=== PATIENT | male | born 1945 | race Caucasian/White ===

== ENCOUNTER 2024-04-25 15:22 | Outpatient (CLI) | payer MEDICARE ==
[2024-04-25 16:10] LABS: Hematocrit 44.4 % (38.8-50.0); Hemoglobin 14.9 g/dL (13.5-17.5); Mean Corpuscular HGB CONC 33.6 g/dL (32.0-36.0); Mean Corpuscular Hemoglobin 30.7 pg (27.0-33.0); Mean Corpuscular Volume 91.5 fL (81.2-95.1); Mean Platelet Volume 9.3 fL (7.4-10.4); Platelet Count 194 10x3/uL (150-450); RBC Distribution Width 13.5 % (11.5-14.5); Red Blood Cell (RBC) Count 4.85 10x6/uL (4.32-5.72); White Blood Cell (WBC) Count 7.1 10x3/uL (3.5-10.5)
[2024-04-25 16:25] LABS: Anion Gap 11 mmol/L (10-20); BUN (Urea Nitrogen) 15 mg/dL (8.4-25.7); Calc. Creatinine Clearance 0 mL/min (70-130); Calcium 9.5 mg/dL (7.8-10.44); Carbon Dioxide 29 mmol/L (23-31); Chloride 106 mmol/L (98-107); Estimated GFR 90; Glucose 101 mg/dL (83-110); Potassium 3.7 mmol/L (3.5-5.1); Sodium 142 mmol/L (136-145)
== END 2024-04-25 15:23 | disposition home or self-care (01) ==
LOC: CSHLAB 15:22
PROVIDERS: ATTEND Surgery
DX: Z01.818 Encounter for other preprocedural examination (principal); K40.20 Bilateral inguinal hernia, without obstruction or gangrene, not specified as recurrent
CPT/HCPCS: 80048; 85027; 93005; 93010

== ENCOUNTER 2024-05-09 09:11 | Day surgery (SDC) | payer MEDICARE ==
[2024-04-25 15:44] VITALS: BMI 26.9
[2024-05-09] MEDS ORDERED: Midazolam HCl 2 mg/2 ml Vial ONE (09:48)
[2024-05-09] MEDS ORDERED: CEFAZOLIN 2 GM VIAL ONE (10:03)
[2024-05-09] MEDS ORDERED: Bupivacaine HCl 0.5%/Epinephrine 1:200,000/PF 30 ml Vial ONE (10:03)
[2024-05-09] MEDS ORDERED: fentaNYL 50 mcg/mL 1 mL Vial ONE ×3 (10:15→12:16)
[2024-05-09] MEDS ORDERED: Lidocaine 1% PF 5 ML VIAL ONE (10:15)
[2024-05-09] MEDS ORDERED: Rocuronium Bromide 10 MG/ML (10ML VIAL) ONE (10:15)
[2024-05-09] MEDS ORDERED: SUGAMMADEX SODIUM 200 MG/2 ML VIAL ONE (10:58)
[2024-05-09] MEDS ORDERED: Ondansetron PF 4 MG/2 ML Vial ONE (10:58)
[2024-05-09] MEDS ORDERED: HYDROcodone/Acetaminophen 5/325 mg Tablet ONE (12:50)
== END 2024-05-09 13:30 | disposition home or self-care (01) ==
LOC: CSHSDC 09:11
PROVIDERS: ATTEND Surgery
PROC: 0YUA4JZ Supplement Bilateral Inguinal Region with Synthetic Substitute, Percutaneous Endoscopic Approach (ICD-10-PCS; principal; 2024-05-09)
DX: K40.20 Bilateral inguinal hernia, without obstruction or gangrene, not specified as recurrent (principal); I10 Essential (primary) hypertension; E03.9 Hypothyroidism, unspecified; E55.9 Vitamin D deficiency, unspecified; E78.5 Hyperlipidemia, unspecified; I48.0 Paroxysmal atrial fibrillation; I73.9 Peripheral vascular disease, unspecified; M19.90 Unspecified osteoarthritis, unspecified site; Z79.890 Hormone replacement therapy; Z79.899 Other long term (current) drug therapy; Z79.01 Long term (current) use of anticoagulants; Z87.891 Personal history of nicotine dependence; Z98.890 Other specified postprocedural states
CPT/HCPCS: 49650; C1781 ×2; J2250; J2405; J3010; S2900

== ENCOUNTER 2024-07-17 08:46 | Day surgery (SDC) | payer MEDICARE ==
[2024-07-15 13:52] VITALS: BMI 25.9
[2024-07-17 09:49] LABS: Hematocrit 43.7 % (38.8-50.0); Hemoglobin 14.3 g/dL (13.5-17.5); Platelet Count 197 10x3/uL (150-450)
[2024-07-17 10:02] LABS: Anion Gap 11 mmol/L (10-20); BUN (Urea Nitrogen) 15 mg/dL (8.4-25.7); Calc. Creatinine Clearance 85 mL/min (70-130); Calcium 8.9 mg/dL (7.8-10.44); Carbon Dioxide 25 mmol/L (23-31); Chloride 108 mmol/L (98-107); Estimated GFR 91; Glucose 99 mg/dL (83-110); Potassium 3.6 mmol/L (3.5-5.1); Sodium 140 mmol/L (136-145)
[2024-07-17] MEDS ORDERED: PROPOFOL 20 ML ONE (11:03)
[2024-07-17] MEDS ORDERED: Fentanyl 250 MCG/5 ML VIAL ONE (11:03)
[2024-07-17] MEDS ORDERED: Lidocaine 1% PF 5 ML VIAL ONE (11:04)
[2024-07-17] MEDS ORDERED: Dexamethasone 4 mg/ml Vial ONE (11:05)
[2024-07-17] MEDS ORDERED: Ondansetron PF 4 MG/2 ML Vial ONE (11:05)
[2024-07-17] MEDS ORDERED: Rocuronium Bromide 10 MG/ML (10ML VIAL) ONE (11:05)
[2024-07-17] MEDS ORDERED: Ciprofloxacin 0.3% Ophth Soln 2.5 ml Bottle ONE ×2 (11:06→12:37)
[2024-07-17] MEDS ORDERED: Mupirocin 2% Ointment 22 GM Tube ONE (11:06)
[2024-07-17] MEDS ORDERED: Lidocaine 1% w/Epinephrine 1:200K 30 ML VIAL ONE (11:06)
[2024-07-17] MEDS ORDERED: Lidocaine 4% PF 5 ML AMP ONE (11:22)
[2024-07-17] MEDS ORDERED: ePHEDrine Sulfate 50 MG/10 ML VIAL ONE (11:38)
[2024-07-17] MEDS ORDERED: CEFAZOLIN 1 GM VIAL ONE (11:48)
[2024-07-17] MEDS ORDERED: PHENYLEPHRINE-NS 100 MCG/ML 10 ML SYRINGE ONE (11:55)
[2024-07-17] MEDS ORDERED: SUGAMMADEX SODIUM 200 MG/2 ML VIAL ONE (12:24)
[2024-07-17] MEDS ORDERED: Bacitracin 1 PK ONE (12:37)
== END 2024-07-17 13:48 | disposition home or self-care (01) ==
LOC: CSHSDC 08:46
PROVIDERS: ATTEND Otolaryngology Plastic Surgery within the Head & Neck
PROC: 09Q77ZZ Repair Right Tympanic Membrane, Via Natural or Artificial Opening (ICD-10-PCS; principal; 2024-07-17)
DX: H72.91 Unspecified perforation of tympanic membrane, right ear (principal); H90.71 Mixed conductive and sensorineural hearing loss, unilateral, right ear, with unrestricted hearing on the contralateral side; H90.42 Sensorineural hearing loss, unilateral, left ear, with unrestricted hearing on the contralateral side; H69.90 Unspecified Eustachian tube disorder, unspecified ear; I10 Essential (primary) hypertension; I48.0 Paroxysmal atrial fibrillation; I73.9 Peripheral vascular disease, unspecified; E11.9 Type 2 diabetes mellitus without complications; E78.5 Hyperlipidemia, unspecified; E03.9 Hypothyroidism, unspecified; M19.90 Unspecified osteoarthritis, unspecified site; Z87.891 Personal history of nicotine dependence; Z90.89 Acquired absence of other organs; Z98.52 Vasectomy status; Z98.890 Other specified postprocedural states; Z79.890 Hormone replacement therapy; Z79.51 Long term (current) use of inhaled steroids; Z79.84 Long term (current) use of oral hypoglycemic drugs; Z79.82 Long term (current) use of aspirin; Z79.01 Long term (current) use of anticoagulants; Z79.899 Other long term (current) drug therapy
CPT/HCPCS: 69631; 80048; 85014; 85018; 85049; J0690; J1100; J2405; J2704; J3010; 36415